=== PATIENT | female | born 1990 | race Caucasian/White ===

== ENCOUNTER 2016-05-27 22:37 | Emergency (ER) | payer BC ==
[~2016-05-27] VITALS: Ht 157.5 cm; Wt 100.0 kg
[2016-05-27] MEDS ORDERED: ALBUTEROL1.25 MG/3 IH (22:43)
[2016-05-27] MEDS ORDERED: ATARAX50 MG PO (22:44)
[2016-05-27] MEDS ORDERED: BIRTH CONTROL PILLS (22:45)
[2016-05-27] MEDS ORDERED: NAPROSYN500 MG PO (22:46)
[2016-05-27] MEDS ORDERED: SINGULAIR 110 MG/TAB PO (22:46)
[2016-05-27] MEDS ORDERED: PROAIR HFA0.09 MG/AC IH (22:47)
[2016-05-27] MEDS ORDERED: RT ADVAIR 228 DISKUS IH (22:48)
[2016-05-27 23:49] LABS: INFLUENZA B NEGATIVE
[2016-05-28] MEDS ORDERED: PREDNISONE20 MG PO (00:39)
[2016-05-28] MEDS ORDERED: ZOFRAN 4MG T4 MG/TAB PO (00:55)
[2016-05-28 00:57] VITALS: BP 136/87; PULSE 100; TEMP 97.7
== END 2016-05-28 00:57 | disposition home or self-care (01) ==
LOC: COL.ER 22:37
PROVIDERS: Nurse Practitioner
DX: J20.9 Acute bronchitis, unspecified (principal); J45.909 Unspecified asthma, uncomplicated
CPT/HCPCS: J1885; J2405; J7030; J7512